=== PATIENT | female | born 1995 | race Caucasian/White ===

== ENCOUNTER 2017-01-29 20:12 | Inpatient (IN) ==
[2017-01-29] MEDS ORDERED: DILAUDID IV ONE ×2 (20:42→21:39)
[2017-01-29] MEDS ORDERED: ZOFRAN IV ONE (20:42)
[2017-01-29 20:43] LABS: MANUAL DIFF NEEDED? NO
[2017-01-29] MEDS ORDERED: NS 1,000 ML IV ONE ×2 (20:43→21:46)
[2017-01-29 20:50] LABS: BASO% 0.2 % (0.0-0.8); EOS# 0.06 X1000 (0.0-0.7); EOS% 0.3 % (0.0-10.0); HEMATOCRIT 45.1 % (37.0-47.0); HEMOGLOBIN 15.2 g/dL (12.0-16.0); IMM GRAN# 0.04 X1000 (0.0-0.04); IMM GRAN% 0.2 % (0.0-0.5); LYMPH# 2.63 X1000 (1.2-3.4); LYMPH% 13.6 % (20.5-51.1); MCH 30.5 PG (27-31); MCHC 33.7 g/dL (33-37); MCV 90.6 FL (81-99); MONO# 1.03 X1000 (0.11-0.59); MONO% 5.3 % (1.7-9.3); MPV 10.5 FL (7.4-10.4); NEUT% 80.4 % (42.2-75.2); PLT 280 X1000 (130-400); RBC 4.98 XMIL (4.2-5.4)
[2017-01-29 21:03] LABS: AGAP 16; ALBUMIN 4.3 g/dL (3.5-5.0); ALKALINE PHOSPHATASE 97 U/L (32-104); BUN 17 mg/dL (8-22); CALCIUM 9.9 mg/dL (8.8-10.2); CHLORIDE 96 mmol/L (98-107); COSMO 270; GOT 12 U/L (10-30); GPT 7 U/L (10-36); POTASSIUM 3.7 mmol/L (3.5-5.1); SODIUM 134 mmol/L (136-145); TCO2 23 mmol/L (25-35); TOTAL PROTEIN 8.3 g/dL (6.3-8.3)
[2017-01-29 21:04] LABS: URINE CULTURE PL NEEDED? NO
[2017-01-29 21:11] LABS: CLARITY SLIGHTLY CLOUDY (CLEAR); COLOR YELLOW; URINE SOURCE CLEAN CATCH
[2017-01-29 21:12] LABS: BILIRUBIN URINE NEGATIVE (NEGATIVE); BLOOD URINE 4+ (NEGATIVE); GLUCOSE URINE NEGATIVE (NEGATIVE); LEUKOCYTES URINE 1+ (NEGATIVE); NITRITE URINE NEGATIVE (NEGATIVE); PH URINE 6.5; PROTEIN URINE 2+(100 mg/dL) mg/dL (NEGATIVE); UROBILINOGEN URINE NORMAL
[2017-01-29 21:13] LABS: URINE RBC <10 /HPF (<10); URINE WBC <10 /HPF (<10)
--- NOTE | 2017-01-29 21:26 | Diag Imaging Result Doc PS360 ---
EXAM: ABDOMEN/PELVIS W/O CONTRAST HISTORY: rlq pain TECHNIQUE: CT urogram without contrast with dose reduction (clarity.) COMMENT: The visualized portion of the chest is unremarkable. There is a tiny calculus in the lower pole of the right collecting system and another in the upper pole. There is no evidence of hydronephrosis on either side. There is no evidence of ureterolithiasis. There is an intrauterine device. Minimal free fluid is present in the pelvis. There are no adnexal masses. The appendix is not distended. There is some fluid in the right colon. There is fecal lies contents in some of the small bowel loops in the pelvis. This may indicate stasis. There are no gallstones. IMPRESSION: Minimal right nephrolithiasis. Possibility of enterocolitis cannot be excluded. IUD. Electronically signed by Jeff Rodriguez 01/29/2017 9:24 PM
[2017-01-29] MEDS ORDERED: DILAUDID IV PRN (21:46)
--- NOTE | 2017-01-29 22:19 | PROVIDER DOCUMENTATION ---
This chart was entered by Maryjane Thomas Scribe, acting as scribe for Robert Costello MD. HPI-Abdominal Pain/GI Problem - General Chief Complaint: Abdominal Pain Stated Complaint: ABD PAIN Time Seen by Provider: 01/29/17 20:36 Source: patient Allergies/Adverse Reactions: Patient Allergies Allergy/AdvReac Type Severity Reaction Status Date / Time Penicillins Allergy VOMITING Verified 01/29/17 20:24 sulfamethoxazole Allergy RASH Verified 01/29/17 20:24 [From Bactrim] trimethoprim [From Bactrim] Allergy RASH Verified 01/29/17 20:24 Home Medications: Home Medication List Medication Instructions Recorded Confirmed Last Taken Type NK [No Home Medications] 01/29/17 01/29/17 Unknown History - History of Present Illness-ABD Nature of Presenting Problems: 22 year old F presents to the ED with a cc of ABD pain, nausea, vomiting, and diarrhea with an onset of yesterday. Abdominal Pain Onset Location: reports: RLQ Pain Radiation: reports: back, other (suprapubic) Quality of Pain: reports: aching Severity in ED: reports: mild Onset/Duration: reports: 24 hours ago Timing: reports: still present Associated Symptoms: reports: diarrhea, nausea, vomiting Bruising or Bleeding Gums?: No Similar Symptoms Previously?: No Recently seen or treated by another doctor?: No Review of Systems - Adult - REVIEW OF SYSTEMS - ADULT Constitutional: denies: chills, fever Eyes: reports: no symptoms reported Ears, Nose, Mouth & Throat: reports: no symptoms reported Cardiovascular: reports: no symptoms reported Respiratory: denies: cough, shortness of breath Gastrointestinal: reports: abdominal pain, diarrhea, nausea, vomiting Genitourinary: denies: dysuria, hematuria Musculoskeletal: reports: no symptoms reported Integumentary: reports: no symptoms reported Neurological: reports: no symptoms reported Psychiatric: reports: no symptoms reported Endocrine: reports: no symptoms reported Hematologic/Lymphatic: reports: no symptoms reported Allergic/Immunologic: reports: no symptoms reported All Other Systems: Reviewed and Negative Past History - Adult - PAST MEDICAL HISTORY-ADULT Review of Records: reports: Nursing Assessment Review, Medications Reviewed Major Childhood Illnesses: reports: denies history Genitourinary: reports: kidney stones - PRIOR SURGERIES/PROCEDURES Surgical/Procedure History: reports: tonsillectomy, other (lithotripsy) - IMMUNIZATION STATUS Childhood Immunizations: See Nurse Assessment Flu Vaccine: See Nurse Assessment - FAMILY HISTORY Family History: reviewed, not pertinent Physical Exam-General - PHYSICAL EXAM-ADULT Initial Vital Signs Reviewed: Yes - CONSTITUTIONAL General Appearance: alert, mild distress - RESPIRATORY Respiratory: chest non-tender, lungs clear, normal breath sounds - CARDIOVASCULAR Cardiovascular: normal peripheral pulses, regular rate, rhythm, no edema - GASTROINTESTINAL (ABDOMEN) Abdominal Exam: rebound (RLQ), tenderness (generalized but greater in RLQ), McBurney's point tenderness, other (positive heel tap) - MUSCULOSKELETAL Back Exam: normal inspection, no CVA tenderness, no vertebral tenderness - SKIN Integumentary: normal color, normal turgor, warm/dry - PSYCHIATRIC Psych/Mental Status: normal mood/affect, normal thought content, normal thought process, oriented x 3 Progress - PLAN OF CARE/RESULTS Progress/Plan/Lab Results: Vital Signs - 8 hr 01/29/17 20:21 Temperature 97.9 F Pulse Rate 118 H Respiratory Rate 18 Blood Pressure 122/077 O2 Sat by Pulse Oximetry 99 Orders Category Date Time Status Saline Loc DIRECTED Care 01/29/17 20:26 Active NPO Diet 01/29/17 20:26 Active CBC WITH ELECTRONIC DIFF [HEME] Stat Lab 01/29/17 20:26 Ordered COMPREHENSIVE METABOLIC PANEL [CHEM] Stat Lab 01/29/17 20:26 Ordered TEST-URINE [PREG] Stat Lab 01/29/17 20:[address] W/POSS RFLX CULT [URINALYSIS] Stat Lab 01/29/17 20:26 Uncollected Result Diagrams: 01/29/17 20:36 01/29/17 20:36 - REASSESSMENT Reassessment #1 Time Reassessed: 21:40 (pt reports pain slightly better, re-exam still shows rebound tenderness RLQ) Status: improving - CT/MRI 1 CT Study: Abdomen, Pelvis Impression: Abnormal (minimal right nephrolithiasis. Possibility of enterocolitis cannot be excluded. IUD.: Dr. Rodriguez(Radiologist)) - CONSULTS/PCP/HOSPITALIST Notification #1 *Consult/PCP/Hospitalist*: Dr. Roque (surgeon) Time Discussed: 21:43 Consult Disposition: Admit (admit to hospitalist and will consult) #2 Consult: Dr. Merida (hospitalist) Departure - Departure Date of Disposition Decision: 01/29/17 Time of Disposition Decision: 22:19 DIAGNOSIS: RLQ abdominal pain Disposition: ADMITTED INPATIENT 09 Certified Medical Emergency: Emergent Condition: Good - Critical Care Note This patient required my direct & personal management of CC.: No This chart was documented by the indicated scribe, (Maryjane Thomas Scribe) and accurately reflects the services I performed and decisions made by me, Robert Costello MD, as attested by the provider's signature.
[2017-01-29] MEDS ORDERED: TYLENOL PO PRN (23:02)
[2017-01-29] MEDS ORDERED: TORADOL IV ONE (23:02)
[2017-01-29] MEDS: NS 1,000 ML IV SCH (23:25)
[2017-01-29] MEDS: FLAGYL 750 MG in NS 150 ML IV SCH (23:34)
[2017-01-30] MEDS: ZOFRAN IV PRN ×6 (00:09→22:19)
[2017-01-30] MEDS: DILAUDID IV PRN ×6 (02:07→20:35)
[2017-01-30] MEDS: LEVAQUIN 750 MG/D5W 750 MG/150 ML IVPB IV SCH (02:07)
--- NOTE | 2017-01-30 04:13 | HISTORY AND PHYSICAL ---
PRIMARY CARE PHYSICIAN: No primary care physician. REASON FOR ADMISSION: A 2-day history of left lower quadrant pain. HISTORY OF PRESENT ILLNESS: Ms. Laguerre is a 22-year-old with a past medical history of only urolithiasis. Comes in today complaining of a 2-day history of sudden lower abdominal pain while she was lying on the couch. She said she could not get up from the couch because the pain was so intense. Said as long as she kept still, the pain would get a little better, but when she moved, suddenly the pain would shoot from the umbilical area, down to her right lower quadrant area. Positive for having nausea, vomiting, and diarrhea, which was not related to meals. She says she estimates it has gone no less than 15 times, and it has been pretty much nonbloody, nonmelanotic. Her vomitus with no hematemesis or coffee grounds. No fever or chills. Says now currently the pain is heavy, localized to the right lower quadrant. It is constant. It does not radiate anywhere for now. At this point, she is in the middle of her menstrual period, and thought initially that this pain which is sharp was related to her menstrual period. She has not had any menorrhagia or any vaginal discharge. No abdominal distention. No cardiorespiratory complaints. No flank pain. No neurological complaints. REVIEW OF SYSTEMS: Twelve system review was done. Positive findings were noted in the HPI. Patient says she has had multiple kidney stones, but this pain does not feel like kidney stones to her. ALLERGIES: Penicillin and sulfa. SOCIAL HISTORY: Smokes 1 pack a day. Has no plans to quit. No alcohol or drug use. FAMILY HISTORY: Notable for cervical cancer in her mom. SURGICAL HISTORY: She had an ICD placement, lithotripsy, and tonsillectomy. LABORATORY WORK: White count 19,000, hemoglobin and hematocrit 15 and 45, platelets 280,000. BUN 17, creatinine 0.8. Serum negative. 2+ protein, urinalysis with 4+ blood. CT abdomen showed minimal right nephrolithiasis, possibility of enterocolitis. Enterocolitis cannot be excluded. PHYSICAL EXAMINATION: GENERAL: Young woman who is in moderate distress from her pain. She is very guarded. She is alert and oriented. Normal mood and anxious affect. VITAL SIGNS: Temperature is 97.3 degrees, heart rate 93, respirations 20, blood pressure 123/75, O2 saturation 99%. HEENT: Head is normocephalic, atraumatic. Eyes are ABAD, EOMI, anicteric, not pale. ENT exam does show she has poor oral dentition. Otherwise, grossly normal. No central cyanosis. NECK: Supple. No JVD or carotid bruit. No thyromegaly. LYMPH NODES: Exam is negative. CHEST: Clear to auscultation. Good air entry in both lung johnson. HEART: First and second sounds heard. No gallops, murmurs, rubs. Rhythm is regular. ABDOMEN: Full, soft, with localized tenderness in the right lower quadrant, more specifically at McBurney's point. Positive rebound. No guarding. Bowel sounds are hypoactive at this time, no masses. EXTREMITIES: No edema, clubbing, cyanosis. NEUROLOGIC: No focal deficits. SKIN: Intact. No breakdown, lesions, or erythema. MUSCULAR: Exam is grossly normal. ASSESSMENT: 1. Right lower quadrant pain, very likely to be appendicitis. 2. Urolithiasis. 3. Mild dehydration. PLAN: At this time, Dr. Roque was notified to see patient in a.m. Empirically treat patient with Levaquin and Flagyl, in case this is something extra-appendicular. We will treat patient symptomatically with antiemetics and pain medication, and hydrate accordingly. cc: Shaina Merida MD
[2017-01-30 06:20] LABS: MANUAL DIFF NEEDED? NO
[2017-01-30] MEDS: NS 1,000 ML IV SCH ×3 (06:33→22:20)
[2017-01-30 06:43] LABS: BASO% 0.2 % (0.0-0.8); EOS# 0.12 X1000 (0.0-0.7); EOS% 1.1 % (0.0-10.0); HEMATOCRIT 38.2 % (37.0-47.0); HEMOGLOBIN 12.6 g/dL (12.0-16.0); IMM GRAN# 0.03 X1000 (0.0-0.04); IMM GRAN% 0.3 % (0.0-0.5); LYMPH# 2.04 X1000 (1.2-3.4); LYMPH% 19.4 % (20.5-51.1); MCH 30.9 PG (27-31); MCV 93.6 FL (81-99); MONO# 0.88 X1000 (0.11-0.59); MONO% 8.4 % (1.7-9.3); MPV 10.7 FL (7.4-10.4); NEUT% 70.6 % (42.2-75.2); PLT 246 X1000 (130-400); RBC 4.08 XMIL (4.2-5.4)
[2017-01-30 07:04] LABS: AGAP 9; ALBUMIN 3.3 g/dL (3.5-5.0); ALKALINE PHOSPHATASE 83 U/L (32-104); BUN 16 mg/dL (8-22); CALCIUM 8.9 mg/dL (8.8-10.2); CHLORIDE 104 mmol/L (98-107); COSMO 278; GOT 10 U/L (10-30); GPT 5 U/L (10-36); POTASSIUM 4.2 mmol/L (3.5-5.1); SODIUM 139 mmol/L (136-145); TCO2 26 mmol/L (25-35); TOTAL BILIRUBIN 0.37 mg/dL (0.20-1.00); TOTAL PROTEIN 6.6 g/dL (6.3-8.3)
--- NOTE | 2017-01-30 08:39 | CONSULTATION ---
DATE OF CONSULTATION: 01/30/2017 CHIEF COMPLAINT: Lower abdominal pain. HISTORY: This is a 22-year-old, white female who presents with a sudden onset of lower abdominal pain the morning prior to her admission. Today, the pain is a little bit improved but she attributes that to the pain medication. She denies any similar pain. She is on her menstrual cycle. She does have a history of kidney stones and it is usually on the right side but she reports that this is different than her kidney stone pain. She does admit to nausea, vomiting, and diarrhea. PAST SURGICAL HISTORY: Includes lithotripsy, a tonsillectomy, and IUD placement. SOCIAL HISTORY: She does smoke. Denies alcohol use. FAMILY HISTORY: Pertinent for cervical cancer. MEDICATIONS: She reports no home medications. ALLERGIES: She reports an allergy to penicillin and sulfa. REVIEW OF SYSTEMS: As noted above. PHYSICAL EXAMINATION: Vital Signs: She is afebrile. Heart rate is 54, blood pressure 112/56. HEENT: She is missing some teeth. Neck: There is no cervical adenopathy. Lungs: Bilateral breath sounds. Heart: Regular rate and rhythm. Abdomen: Soft. Bowel sounds are present. She does not have peritoneal signs. When distracted, you can compress her right lower quadrant without response. Her discomfort primarily appears to be in the middle of the abdomen. Extremities: No peripheral edema. Neurologic: She is to awake and alert. DIAGNOSTICS/LABS: White count is 10,500 today down from 19,000, hemoglobin 12.6. Chemistry is okay. She does have blood in the urine which might be consistent with a kidney stone. ASSESSMENT: Abdominal pain of uncertain etiology. Her CT scan is certainly not convincing for appendicitis. She has responded well to antibiotic therapy. I do not recommend operative intervention at this time. cc: MD Shaina Florian MD
--- NOTE | 2017-01-30 15:19 | PROGRESS NOTE ---
DATE: 01/30/2017 SUBJECTIVE: Today Ms. Laguerre refers to be continue hurting. According to her, surgery has seen her and they do not think she has acute appendicitis. OBJECTIVE: Vital signs: Blood pressure is 112/56, pulse of 54, respirations 20, temperature 98.0 degrees. General: Ms. Laguerre is a 22-year-old female. She is in bed in mild painful distress. HEENT: Mucosa is pink and moist. Anicteric. Acyanotic. Neck: Supple. Chest: Clear. Cardiovascular: Regular rate and rhythm. Abdomen: Soft, distended, is tender all over but more so more tender on the right lower quadrant with rebound tenderness. Bowel sounds are present. ASSOCIATE DOCTOR: Patient is awake, alert and oriented x4. There is no focal neurological deficit. LABORATORY DATA: WBC is down to 10.50, hemoglobin is 12.6, platelet count of 246,000. Chemistry is reviewed, completely normal, bicarb is 26. Urinalysis. Patient has 4+ blood. Patient is actually now seeing her menses. A CT scan of the abdomen and pelvic without contrast shows minimal right nephrolithiasis and possibility of enterocolitis cannot be excluded. CURRENT MEDICATIONS: Include 1. Levofloxacin. 2. Metronidazole. 3. IV fluids. 4. Dilaudid. 5. Acetaminophen. ASSESSMENT: 1. Right lower quadrant abdominal pain with some peritoneal irritation, etiology not apparently clear. Surgery has evaluated the patient. They do not think she has acute appendicitis. A CT scan of the abdomen and pelvic shows the possibility of enteric colitis which I think it is what she has. Patient however did not do the CT scan with contrast. We would however observe her clinically. If her pain does not improve we will repeat a CT scan with contrast tomorrow. 2. Enterocolitis. Patient does have diarrhea, vomiting which is all suggestive of that diagnosis. We will continue with adequate hydration and symptomatic treatment. She has been started on IV antibiotics. I will continue with that. 3. Mild right nephrolithiasis noted. 4. Dehydration. 5. Tobacco abuse. Patient has been counseled. 6. Patient is currently having her menses and has intrauterine device both of which can also contribute to the abdominal pain but not the diarrhea. cc: MD Shaina Parker MD
[2017-01-30] MEDS: FLAGYL 750 MG in NS 150 ML IV SCH (16:25)
[2017-01-31] MEDS: FLAGYL 750 MG in NS 150 ML IV SCH ×2 (01:00→13:55)
[2017-01-31] MEDS: LEVAQUIN 750 MG/D5W 750 MG/150 ML IVPB IV SCH (03:56)
[2017-01-31] MEDS: NS 1,000 ML IV SCH ×4 (03:59→17:38)
[2017-01-31] MEDS: ZOFRAN IV PRN ×5 (06:10→22:26)
[2017-01-31] MEDS: DILAUDID IV PRN ×5 (06:10→22:25)
--- NOTE | 2017-01-31 16:57 | PROGRESS NOTE ---
DATE: 01/31/2017 SUBJECTIVE: Today Ms. Laguerre refers to be doing a little better. Her pain is less than yesterday and she has been tolerating her diet. Patient also said that she had 2 bowel movement and it is more formed than days before. OBJECTIVE: Vital signs: Blood pressure is 106/53, pulse of 75, respirations 20, temperature 98.7 degrees. General: Ms. Laguerre is a 22-year-old female. She is in bed, not in any distress. HEENT: Mucosa is pink and moist. Anicteric. Acyanotic. Neck: Supple. Chest: Good air entry bilaterally. No crepitations. No rhonchi. Cardiovascular: Regular rate and rhythm. Abdomen: machine steak tenderizer more so on the right lower quadrant but there is no remarkable rebound tenderness today. ROUND BONER: Patient is awake and alert and oriented. LABORATORY DATA: No lab work for today. ASSESSMENT: 1. Low abdominal pain more so on the right side CT scan consistent with enterocolitis. Patient seems to be improving with the current intravenous medications and hydration. The patient has been evaluated by surgery and they do not think this is appendicitis. 2. Enterocolitis. The patient was having a lot of nausea, vomiting and diarrhea. These have significantly improved. We will continue with the current IV fluids and antibiotics. 3. Mild right nephrolithiasis noted on CT scan. 4. Dehydration improving. 5. Tobacco abuse. Patient has been counseled. So in general Ms. Laguerre was transferred from [place] here because of excruciating abdominal pain, nausea, vomiting and diarrhea. CT scan of the abdomen revealed enterocolitis. Surgery evaluated the patient because of concern of appendicitis but they ruled out any surgical abdomen. The patient seems to be improving on the antibiotics and intravenous fluids. We are going to continue with the current therapy. I think by tomorrow will get a better idea when Ms Laguerre can be discharged. cc: MD Shaina Parker MD
[2017-02-01] MEDS: FLAGYL 750 MG in NS 150 ML IV SCH ×2 (00:37→11:56)
[2017-02-01] MEDS: NS 1,000 ML IV SCH ×4 (00:37→20:23)
[2017-02-01] MEDS: DILAUDID IV PRN ×6 (01:49→20:23)
[2017-02-01] MEDS: LEVAQUIN 750 MG/D5W 750 MG/150 ML IVPB IV SCH (02:25)
[2017-02-01] MEDS: ZOFRAN IV PRN ×3 (02:25→17:23)
[2017-02-01 05:58] LABS: MANUAL DIFF NEEDED? NO
[2017-02-01 06:07] LABS: BASO% 0.3 % (0.0-0.8); EOS# 0.16 X1000 (0.0-0.7); EOS% 2.2 % (0.0-10.0); LYMPH# 2.94 X1000 (1.2-3.4); LYMPH% 40.4 % (20.5-51.1); MCH 30.8 PG (27-31); MCHC 33.3 g/dL (33-37); MCV 92.4 FL (81-99); MONO# 0.51 X1000 (0.11-0.59); MPV 10.3 FL (7.4-10.4); NEUT% 50.1 % (42.2-75.2); PLT 276 X1000 (130-400); RBC 4.22 XMIL (4.2-5.4)
[2017-02-01 06:31] LABS: AGAP 11; BUN 3 mg/dL (8-22); CALCIUM 8.4 mg/dL (8.8-10.2); CHLORIDE 108 mmol/L (98-107); COSMO 282; POTASSIUM 3.6 mmol/L (3.5-5.1); SODIUM 144 mmol/L (136-145); TCO2 25 mmol/L (25-35)
[2017-02-01] MEDS ORDERED: SODIUM CHLORIDE 0.9% INJ SCH (15:45)
--- NOTE | 2017-02-01 15:58 | PROGRESS NOTE ---
DATE: 02/01/2017 SUBJECTIVE: Patient is still nauseous, still some issues with abdominal pain. LABORATORY DATA: Her white count is normal. The rest of lab work looks unremarkable. Her CT scan had just shown enterocolitis. PROBLEM LIST: 1. Enterocolitis. She is still having difficulties. I am going to maintain her on her antibiotics. I am going to get stool studies and pursue GI consult just because she is still not improved. 2. Nephrolithiasis appears to be stable. I do not think this is an active issue. 3. Dehydration. Continue gentle hydration and monitor. DISPOSITION: Pending clinical course. We will continue to follow. cc: MD Shaina Armstrong MD
[2017-02-01] MEDS: PEPCID IV SCH (17:31)
[2017-02-01] MEDS: BENTYL PO SCH (17:32)
--- NOTE | 2017-02-01 18:56 | CONSULTATION ---
DATE OF CONSULTATION: 02/01/2017 CONSULTING PHYSICIAN: Moiz Mustafa MD. REASON FOR CONSULTATION: Right lower quadrant pain. HISTORY: This is a 22-year-old white female who presented to the hospital with complaints of sudden onset of pain in the lower abdomen. She tells me the pain was located across the abdomen, the lower part, but it has sort of concentrated now in the right lower quadrant area. She tells me the pain was cramp-like and was associated with some cold sweats but she did not have any fever or chills. She has felt nauseated but denies any vomiting. She denied any constipation or diarrhea and has not any blood or mucus in her stool. Her appetite has been good. She has tolerated her diet well. Her pain continues albeit symptoms have improved with antibiotics. When she came to the hospital she could not even walk, take a deep breath or cough without hurting, that has improved. She has not had these kinds of symptoms before. She denies dysuria, polyuria or hematuria. She denies any vaginal discharge but she has been on her period. She does not have any family history of Crohn's disease or ulcerative colitis. She does not know of her father or the paternal side of the family. Her mother was also adopted. PAST MEDICAL HISTORY: Nothing significant. PAST SURGICAL HISTORY: She has a history of nephrolithiasis and lithotripsy for nephrolithiasis. History of tonsillectomy. IUD was placed. MEDICATIONS PRIOR TO HOSPITALIZATION: She was not on any medication prior to hospitalization. ALLERGIES: She claims to be allergic to sulfa and penicillin. SOCIAL HISTORY: She lives with her mother. She has 2 children ages 1 and 2. She is a homemaker. Se does not smoke. She claims she does not drink alcohol or use illicit drugs. FAMILY HISTORY: As mentioned above. Her mother was adopted and she has a history of cervical cancer. Otherwise no history of colon cancer, stomach cancer, pancreatic cancer or colitis in the family. REVIEW OF SYSTEMS: As per HPI as above. PHYSICAL EXAMINATION: General: On examination, a very pleasant, white female. She is lying in bed. She is conscious, alert, appears to be in no distress Vital Signs: Temperature 98.6 degrees, pulse 70 per minute, breathing 16, blood pressure 105/65. She is 162 pounds and is 5 feet 4 inches tall. HEENT: Head is atraumatic, normocephalic. Eyes: Conjunctivae is normal. Sclerae anicteric. Nares are patent. No discharge noted. Mouth has poor dentition. Throat is normal. Neck: Supple. No lymphadenopathy or thyromegaly. Chest: Bilaterally symmetrical. It is moving with respirations. Breath sounds audible bilaterally. No rhonchi or crepitations could be heard. Heart: S1 and S2 audible. No murmur could be appreciated. Abdomen : Full, soft, mildly tender in right lower quadrant area but no rebound tenderness. No guarding noted. No mass or visceromegaly noted. Bowel sounds audible. Extremities: No pedal edema, cyanosis, clubbing was noted. Central Nervous System: Grossly intact. No sensory or motor deficit. LABS: Labs were reviewed which showed WBC on admission which was 19.35 and has come down to 7.28, hemoglobin 13.0, hematocrit 39.0. MCV was 76. Sodium 144, potassium 3.6, chloride 108, bicarbonate 25, BUN 3, creatinine 0.5. Urinalysis is negative for UTI. CT of abdomen and pelvis: There was a question possible enterocolitis, otherwise right nephrolithiasis. IMPRESSION: This is a 22-year-old white female who has presented with lower abdominal pain and it has concentrated now in the right lower quadrant area with some localized tenderness. CT scan is not suggestive of appendicitis but she does have a question of possible enterocolitis most likely infectious, however, IBD is always a possibility. With her elevated white count and response to antibiotic, I think this was most likely infectious. I would continue antibiotics but change it to p.o. and then follow up in the office after discharge. If symptoms improve with antibiotics, no further intervention will be needed. However, if symptoms persist or if there is any question about the possibility of IBD, she would need endoscopic evaluation and biopsy of the terminal ileum area. She has an IUD in place. A PIPELINES MANAGER etiology is always a possibility, suggesting PID, and this needs to be entertained as well. I have explained the finding and plan to the patient and she understands all the pertinent questions answered. cc: MD Shaina Jennings MD MTDD
[2017-02-02] MEDS: DILAUDID IV PRN ×2 (01:04→05:42)
[2017-02-02] MEDS: FLAGYL 750 MG in NS 150 ML IV SCH ×2 (01:04→12:36)
[2017-02-02] MEDS: ZOFRAN IV PRN ×3 (01:04→11:58)
[2017-02-02] MEDS: PEPCID IV SCH (03:00)
[2017-02-02] MEDS: LEVAQUIN 750 MG/D5W 750 MG/150 ML IVPB IV SCH (03:00)
[2017-02-02] MEDS: BENTYL PO SCH ×3 (05:42→11:58)
[2017-02-02 06:03] LABS: HEMATOCRIT 38.9 % (37.0-47.0); HEMOGLOBIN 12.8 g/dL (12.0-16.0); MCH 31.1 PG (27-31); MCHC 32.9 g/dL (33-37); MCV 94.4 FL (81-99); MPV 10.1 FL (7.4-10.4); RBC 4.12 XMIL (4.2-5.4)
[2017-02-02 06:28] LABS: AGAP 10; BUN 2 mg/dL (8-22); CALCIUM 8.6 mg/dL (8.8-10.2); CHLORIDE 107 mmol/L (98-107); COSMO 282; POTASSIUM 3.7 mmol/L (3.5-5.1); SODIUM 144 mmol/L (136-145); TCO2 27 mmol/L (25-35)
[2017-02-02] MEDS: NS 1,000 ML IV SCH (07:49)
[2017-02-02 08:23] VITALS: BP 120/67
--- NOTE | 2017-02-02 13:31 | PROGRESS NOTE ---
DATE: 02/02/2017 SUBJECTIVE: Patient states she feels much better. She has not had to receive any pain medications since early this morning. She is tolerating her diet without difficulties. She is asking about going home. OBJECTIVE: Vital Signs: Temperature 98.4 degrees, pulse 42, respirations 12, blood pressure 120/67. Generally: Patient is awake, alert, no acute distress. HEENT: Normocephalic, atraumatic. Pupils equal, round, reactive to light. Sclerae nonicteric. Respiratory: Lung sounds clear bilaterally. Cardiovascular: Regular rate and rhythm. Abdomen: Soft. No reported tenderness with palpation at present time. DIAGNOSTIC RESULTS: Laboratory hematology: White count 8.24, hemoglobin 12.8, hematocrit 38.9, MCV 94.4, platelets 292,000. Chemistry: Sodium 144, potassium 3.7, chloride 107, CO2 27, BUN 2, creatinine 0.6. IMAGING: Abdominal CT scan on 01/29/2017 showed minimal right nephrolithiasis with the possibility of enterocolitis and noted IUD. PLAN: Continue supportive care. Continue antibiotics. She is tolerating her diet. She has not required pain medicine since early this morning. Since she continues to improve , per GI it would be appropriate to be discharged on p.o. antibiotics and we will follow up with her in the office. I have discussed this case with Dr. Byrd. Dictated by MALINDA Price for Archie Byrd MD cc: MALINDA Angulo MD [place]le P. Akinsoto, MD [facility] HOSPITALBoris
--- NOTE | 2017-02-26 22:29 | DISCHARGE SUMMARY ---
ADMISSION DATE: 01/29/2017 DISCHARGE DATE: 02/02/2017 DISCHARGE DIAGNOSES: 1. Enterocolitis. 2. Nephrolithiasis. 3. Dehydration. CONSULTATIONS: 1. Dr. Rouqe for possible appendicitis. 2. Dr. Byrd for colitis. HOSPITAL COURSE: Briefly, the patient admitted 01/29 discharge 02/02, she was admitted for diarrhea, nausea, vomiting. She had a white count of 19,000. Her CT scan showed enterocolitis. She was placed empirically on Levaquin and Flagyl. Surgery was consulted but did not feel she had an acute abdomen or appendicitis. She slowly clinically improved, actually no stool studies were obtained, think they were ordered but had resolved but her initial white count resolved the following day, she was still having some intermittent nausea, vomiting. GI was consulted. Just recommended to continue the course. On the she was tolerating p.o. without difficulty. No pain medicine. Diarrhea seems stable and she was felt stable for discharge. DISCHARGE MEDICATIONS: Levaquin 500 daily for 6 days, Flagyl for 6 days and Zofran p.r.n. DISCHARGE CONDITION: Stable. FOLLOWUP: Told to follow up with PCP as needed and Dr. Byrd. cc: MD Shaina Armstrong MD
== END 2017-02-02 14:35 | disposition home or self-care (01) ==
LOC: 4N 20:12 → P.ED 20:12 → OBSVTOIN 22:13 → SUATTDRO 22:13
PROVIDERS: ADMIT Internal Medicine; ATTEND Internal Medicine